=== PATIENT | male | born 1960 | race Caucasian/White ===

== ENCOUNTER 2017-12-11 05:13 | Day surgery (SDC) | payer OTHER ==
[~2017-12-11] VITALS: Ht 165.1 cm; Wt 136.1 kg
[2017-12-11] MEDS ORDERED: IBUP200S18 PO (07:00)
[2017-12-11] MEDS ORDERED: ABI10 PO (07:00)
[2017-12-11] MEDS ORDERED: fentaNYL 0.05 MG/ML VIAL ONE (07:25)
[2017-12-11] MEDS ORDERED: MIDAZOLAM 2 MG/2 ML VIAL ONE (07:25)
[2017-12-11] MEDS ORDERED: LIDOCAINE 2% 100 MG/5 ML UJET TP ONE (07:26)
[2017-12-11] MEDS ORDERED: KETOROLAC 30 MG/ML VIAL ONE (07:58)
[2017-12-11] MEDS ORDERED: KETOROLAC 30 MG/ML VIAL IVP SCH (08:08)
== END 2017-12-11 08:40 | disposition home or self-care (01) ==
LOC: MOR 05:13 → MMU 05:53 → MOR 08:40
PROVIDERS: ATTEND Internal Medicine Gastroenterology
DX: K57.30 Diverticulosis of large intestine without perforation or abscess without bleeding (principal); E66.01 Morbid (severe) obesity due to excess calories; F32.9 Major depressive disorder, single episode, unspecified; Z80.0 Family history of malignant neoplasm of digestive organs; Z72.89 Other problems related to lifestyle; Z87.891 Personal history of nicotine dependence; Z79.899 Other long term (current) drug therapy; Z68.42 Body mass index [BMI] 45.0-49.9, adult
CPT/HCPCS: 45378; J1885; J2250; J3010